=== PATIENT | female | born 1980 | race Caucasian/White ===

== ENCOUNTER 2024-05-12 22:41 | Emergency (ER) | payer OTHER ==
[~2024-05-12] VITALS: Ht 167.6 cm; Wt 96.6 kg
[~2024-05-12 22:41] MED LIST: ANTIBIOTIC; CHLO10 PO; ENTRESTO 24 MG1 EACH PO; FERSU300; FUROSEMIDE20 MG PO; HYDR1TAB94; INFANTS PR50 MG/1.25; KLOR-CON 1010 ME9 PO; MELATONIN5 M1 PO; METO50ER PO; OXYC10ER; THYROID MED; TORSE20 PO; Verotin-Gr Cap1 EACH PO
[2024-05-12 23:06] VITALS: BP 136/105
[2024-05-13] MEDS ORDERED: CEPH500 PO (00:58)
[2024-05-13] MEDS ORDERED: Cephalexin Monohydrate 500 MG Cap PO ONE (01:00)
== END 2024-05-13 01:00 | disposition home or self-care (01) ==
LOC: ER 22:41
DX: M70.32 Other bursitis of elbow, left elbow (principal); L03.114 Cellulitis of left upper limb; Z79.899 Other long term (current) drug therapy; Z87.891 Personal history of nicotine dependence
CPT/HCPCS: 20605; 99282-25; A9270

== ENCOUNTER 2025-06-01 11:51 | Emergency (ER) | payer OTHER ==
[~2025-06-01] VITALS: Ht 167.6 cm; Wt 90.7 kg
[~2025-06-01 11:51] MED LIST changes: +CEPH500 PO
[2025-06-01 11:55] VITALS: BP 174/115
[2025-06-01] MEDS ORDERED: HYDROcodone 5-APAP 325 TAB PO ONE (12:00)
[2025-06-01] MEDS ORDERED: OxyCODONE 5 mg/Acetamin 325 mg TABLET PO ONE (12:35)
[2025-06-01] MEDS ORDERED: Ketorolac Tromethamine 30mg Vial IM ONE (12:35)
[2025-06-01] MEDS ORDERED: Percocet 5-3251 EACH PO (15:27)
[2025-06-01] MEDS ORDERED: IBUP800 PO (15:27)
== END 2025-06-01 16:33 ==
LOC: ER 11:51
DX: S97.81XA Crushing injury of right foot, initial encounter (principal); S91.311A Laceration without foreign body, right foot, initial encounter; W23.0XXA Caught, crushed, jammed, or pinched between moving objects, initial encounter
CPT/HCPCS: 12001; 73630; 90471; 90715; 96372-59; 99283-25; A9270; J1885